=== PATIENT | male | born 1950 | race Caucasian/White ===

== ENCOUNTER 2016-10-18 07:02 | Inpatient (IN) ==
--- NOTE | 2016-10-17 21:11 | Discharge Summary ---
<Radha Romano E - Last Filed: 10/17/16 21:08> Date of Encounter: 10/17/16 - Discharge Diagnosis (1) Arthritis of left knee Priority: Primary Status: Chronic (2) Atrial fibrillation Priority: Secondary Status: Chronic Qualifiers: Atrial fibrillation type: unspecified Qualified Code(s): I48.91 - Unspecified atrial fibrillation (3) Cardiac defibrillator in place Priority: Secondary Status: Chronic (4) Anticoagulant long-term use Priority: Secondary Status: Chronic Comments: Eliquis (5) Oxygen dependent Priority: Secondary Status: Chronic Comments: 3.5 LPM via NC (6) COPD (chronic obstructive pulmonary disease) Priority: Secondary Status: Chronic Qualifiers: COPD type: unspecified COPD Qualified Code(s): J44.9 - Chronic obstructive pulmonary disease, unspecified (7) JOSE on CPAP Priority: Secondary Status: Chronic (8) Insulin dependent diabetes mellitus Priority: Secondary Status: Chronic (9) Gout Priority: Secondary Status: Chronic Qualifiers: Gout site: unspecified site Gout etiology: unspecified cause Chronicity: unspecified Qualified Code(s): M10.9 - Gout, unspecified - Discharge Medications Home Medications: Allopurinol [Zyloprim] 300 mg PO DAILY 03/13/15 [History] Insulin ASPART [NovoLOG] 8 units SQ TID 03/13/15 [History] Insulin Glargine,Hum.rec.anlog [Lantus Solostar] 40 units SQ HS 03/13/15 [ History] Ipratropium/Albuterol Neb [Duoneb] 3 ml IH Q6HR 03/13/15 [History] TraMADol [Ultram] 50 mg PO QID PRN 03/13/15 [History] Albuterol Sulfate [Proair Hfa] 1 puff IH Q4-6H PRN 11/26/15 [History] Apixaban [Eliquis] 2.5 mg PO BID 11/26/15 [History] Fluticasone/Salmeterol [Advair 500-50 Diskus] 1 each IH BID 03/30/16 [History] Multivitamin/Iron/Folic Acid [Cerovite Advanced Form Tab] 1 each PO DAILY [History] Atorvastatin [Lipitor] 40 mg PO HS 09/02/16 [History] Carvedilol [Coreg] 25 mg PO BID 09/02/16 [History] Furosemide [Lasix] 40 mg PO DAILY 09/02/16 [History] Oxygen 3.5 l NS AD 09/02/16 [History] Trazodone HCl 150 mg PO HS 09/02/16 [History] OxyCODONE Immed Rel [Roxicodone 5 MG] 5 - 10 mg PO Q6HR PRN #40 tablet 10/17/16 [Rx] Isosorbide DInitrate [Isosorbide Dinitrate] 10 mg PO BID 10/18/16 [History] LORazepam [Ativan] 1 mg PO HS 10/18/16 [History] Omeprazole [PriLOSEC] 20 mg PO DAILY 10/18/16 [History] hydrALAZINE [HydrALAZINE] 10 mg PO Q8H 10/18/16 [History] rOPINIRole [Requip] 3 mg PO HS 10/18/16 [History] Allergies/Adverse Reactions: Allergies Penicillins [PCN] Allergy (Verified 09/27/16 14:07) Rash aspirin [ASA] Adverse Reaction (Verified 09/27/16 14:07) Nausea haloperidol [From Haldol] Adverse Reaction (Verified 09/27/16 14:07) Confusion Primary care physician: Jack Ordaz CNP - Patient Status Disposition: Transfer Inpatient Rehab Fac Condition: Good - Discharge Instructions Follow Up With: Jack Ordaz CNP [Primary Care Provider] - - Hospital Course Hospital course: Mr. Mcghee is a 66 year old male - Time Spent with Patient Total time spent providing and/or coordinating discharge services: - VTE Reasons for not Prescribing Prophylaxis: Not indicated-Anticoagulated or INR therapeutic Documentation of Mechanical Device: Venous foot pump, device Contraindication No Overlap Therapy: Admin of oral Factor Xa Inhibitor <Rony Ibarra - Last Filed: 10/21/16 07:49> Date of Encounter: 10/21/16 Time of Encounter: 07:48 - Discharge Diagnosis (1) Status post total left knee replacement Priority: Primary Status: Acute (2) Morbid obesity with BMI of 40.0-44.9, adult Priority: Secondary Status: Chronic (3) Arthritis of left knee Priority: Primary Status: Chronic (4) Atrial fibrillation Priority: Secondary Status: Chronic Qualifiers: Atrial fibrillation type: unspecified Qualified Code(s): I48.91 - Unspecified atrial fibrillation (5) Cardiac defibrillator in place Priority: Secondary Status: Chronic (6) Anticoagulant long-term use Priority: Secondary Status: Chronic (7) Oxygen dependent Priority: Secondary Status: Chronic (8) COPD (chronic obstructive pulmonary disease) Priority: Secondary Status: Chronic Qualifiers: COPD type: unspecified COPD Qualified Code(s): J44.9 - Chronic obstructive pulmonary disease, unspecified (9) JOSE on CPAP Priority: Secondary Status: Chronic (10) Insulin dependent diabetes mellitus Priority: Secondary Status: Chronic (11) Gout Priority: Secondary Status: Chronic Qualifiers: Gout site: unspecified site Gout etiology: unspecified cause Chronicity: unspecified Qualified Code(s): M10.9 - Gout, unspecified Primary care physician: Jack Ordaz CNP - Patient Status Functional capacity at discharge: uses cane/walker Overall status at discharge: patient is progressing back to baseline - Hospital Course Hospital course: Mr. Mcghee is a 66 year old male Status post left total knee replacement. The patient had an uneventful postoperative course. They received antibiotics and physical therapy and were discharged in stable condition. There will follow-up in the office in 2 weeks. Patient will go to an extended care facility. On DVT prophylaxis. - Time Spent with Patient Total time spent providing and/or coordinating discharge services:
[2016-10-18] MEDS ORDERED: Lidocaine -MPF 1% 2 ML VIAL ID ONE (07:38)
[2016-10-18] MEDS ORDERED: Albuterol 2.5 MG/3 ML NEBULIZER IH ONE (07:38)
[2016-10-18] MEDS ORDERED: CeFAZolin Pre 3,000 MG/100 ML 3,000 MG/100 ML BAG IVPB ONE (07:38)
[2016-10-18] MEDS ORDERED: Ringers Solution, Lactated 1,000 ML IVC SCH ×2 (07:45→11:41)
--- NOTE | 2016-10-18 07:55 | History & Physical Report ---
Date of Encounter: 10/18/16 Time of Encounter: 07:55 24 Hour HP Update - Instructions Instructions: If the History and Physical is less than 30 days old and was completed prior to A.M. admission and or procedure and has NOT been updated on calendar day of procedure please complete this update prior to performing procedure. - Update Patient reports changes in Medical Condition: No Changes in examination, assessment, or condition: No Changes in Medication: No Preop tests/diagnostics Reviewed: Yes Surgery Remains Indicated: Yes Consent for Planned Operative Procedure(s) Verified: Yes - Pre-Operative Checklist Preoperative Checklist Indicated: No Prophylactic Antibiotic Ordered: Yes Is VTE Prophylaxis Indicated?: Yes
[2016-10-18] MEDS ORDERED: Famotidine 20 MG/2 ML VIAL IVP ONE (08:07)
[2016-10-18] MEDS ORDERED: Gabapentin 300 MG CAPSULE PO ONE (08:08)
[2016-10-18] MEDS ORDERED: *HR* FentaNYL (PF) 100 MCG/2 ML VIAL ONE (08:14)
[2016-10-18] MEDS ORDERED: Ketamine *HR* 500 MG/10 ML MDV ONE (08:14)
[2016-10-18] MEDS ORDERED: *HR* Midazolam HCl 2 MG/2 ML VIAL ONE (08:15)
[2016-10-18] MEDS ORDERED: *HR* Propofol 200 MG/20 ML VIAL IVP ONE (08:15)
[2016-10-18] MEDS ORDERED: Lidocaine -MPF 2% 2 ML VIAL ONE (08:17)
[2016-10-18] MEDS ORDERED: Bupivacaine/Clonidine Syringe 1 EACH SYRINGE ONE (08:34)
[2016-10-18] MEDS ORDERED: ROPIVACAINE HCL/PF 0.5% 30 ML VIAL ONE (08:35)
--- NOTE | 2016-10-18 08:41 | Anesthesia Evaluation PreOp ---
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 History: Denies Any Significant HX Other Medical History: Diabetes Type II, GERD, Other ([place]) Anesthesia History: No Prior Anesthetic Complications Alcohol Use: rarely Drug use: none Medications and Allergies Allopurinol [Zyloprim] 300 mg PO DAILY 03/13/15 [History] Insulin ASPART [NovoLOG] 8 units SQ TID 03/13/15 [History] Insulin Glargine,Hum.rec.anlog [Lantus Solostar] 40 units SQ HS 03/13/15 [ History] Ipratropium/Albuterol Neb [Duoneb] 3 ml IH Q6HR 03/13/15 [History] TraMADol [Ultram] 50 mg PO QID PRN 03/13/15 [History] Albuterol Sulfate [Proair Hfa] 1 puff IH Q4-6H PRN 11/26/15 [History] Apixaban [Eliquis] 2.5 mg PO BID 11/26/15 [History] Fluticasone/Salmeterol [Advair 500-50 Diskus] 1 each IH BID 03/30/16 [History] Multivitamin/Iron/Folic Acid [Cerovite Advanced Form Tab] 1 each PO DAILY [History] Atorvastatin [Lipitor] 40 mg PO HS 09/02/16 [History] Carvedilol [Coreg] 25 mg PO BID 09/02/16 [History] Furosemide [Lasix] 40 mg PO DAILY 09/02/16 [History] Oxygen 3.5 l NS AD 09/02/16 [History] Trazodone HCl 150 mg PO HS 09/02/16 [History] OxyCODONE Immed Rel [Roxicodone 5 MG] 5 - 10 mg PO Q6HR PRN #40 tablet 10/17/16 [Rx] Isosorbide DInitrate [Isosorbide Dinitrate] 10 mg PO BID 10/18/16 [History] LORazepam [Ativan] 1 mg PO HS 10/18/16 [History] Omeprazole [PriLOSEC] 20 mg PO DAILY 10/18/16 [History] hydrALAZINE [HydrALAZINE] 10 mg PO Q8H 10/18/16 [History] rOPINIRole [Requip] 3 mg PO HS 10/18/16 [History] Allergies Penicillins [PCN] Allergy (Verified 09/27/16 14:07) Rash aspirin [ASA] Adverse Reaction (Verified 09/27/16 14:07) Nausea haloperidol [From Haldol] Adverse Reaction (Verified 09/27/16 14:07) Confusion - Meds/Allergy Pre-op Review Medications Reviewed: Yes Allergies Reviewed: Yes Beta Blockers on Current Med List: Yes (Coreg last night 1000) Anesthesia Results - Labs Laboratory Tests 09/27/16 09/27/16 13:20 13:20 Hgb 13.5 Hct 40.4 Plt Count 129 L Sodium 142 Potassium 3.9 BUN 18 Creatinine 1.06 - Imaging EKG: report reviewed (AFib) Additional studies: LVEF 20% Anesthesia Exam O2 Sat Height 1.7 m Height 1.7 m Height 1.7 m Weight 122.924 kg Weight 122.924 kg Weight 122.924 kg O2 Sat by Pulse Oximetry 92 O2 Sat by Pulse Oximetry 92 Vital Signs Temp Pulse Resp BP Pulse Ox 98.4 F 85 18 143/83 92 10/18/16 07:21 10/18/16 07:21 10/18/16 07:21 10/18/16 07:21 10/18/16 07:21 Height: 5'7 Weight: 271 lbs NPO (# of Hours): MN Pain Scale: 0 - HEENT Pupil (Motor): Pupils equal, EOMI Mallampati: III Denture Type: Upper: Complete Oral Opening: Less than or equal to 3 - 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 LOC: Oriented 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
[2016-10-18] MEDS ORDERED: Heparin 1,000 UNITS/500 mL NS 500 ML ONE (09:04)
--- NOTE | 2016-10-18 09:12 | Anesthesia Procedures ---
Date of Encounter: 10/18/16 Time of Encounter: 09:10 Procedures: Anesthesia - Nerve Block Procedure Date: 10/18/16 Time: 09:10 Allergies/Adv Reactions: Allergies Penicillins [PCN] Allergy (Verified 09/27/16 14:07) Rash aspirin [ASA] Adverse Reaction (Verified 09/27/16 14:07) Nausea haloperidol [From Haldol] Adverse Reaction (Verified 09/27/16 14:07) Confusion Pre-op Diagnosis: left knee oa Surgical Procedure: left total knee Checklist: Correct Patient Identifier, Correct procedure, History checked Correct side: Left Blood Thinner: Yes (off x 3 days) Monitor Applied: EKG, BP, Pulse Oximetry Supplemental Oxygen via Nasal Cannula (L/min): 2 Sedation: Versed (mg): 2 Sedation: Fentanyl (mcg): 100 Indication: Post Op Analgesia Pre-op Neuro Deficits: No Block Type: Femoral Catheter placed: No Sterile Technique: Yes Ultrasound used: Yes Anatomy identified: Yes Visual spread of Local: Yes Neuro Stimulation: Yes Nerve Stimulator Range: 0.2 - 0.4 mA Blood on Needle Aspiration: No Smooth Injection of Local: Yes Pain with Injection of Local: No Prep: Chlorhexadine Needle: 22 x 50 mm Stimuplex Local: Ropivacaine (0.5%) Volume (cc): 30 Number of Attempts: 1 Complications: None/effective block
[2016-10-18] MEDS ORDERED: *HR* Succinylcholine 200 MG/10 ML VIAL IVP ONE (09:21)
[2016-10-18] MEDS ORDERED: *HR* Etomidate 40 MG/20 ML VIAL IVP ONE (09:21)
[2016-10-18] MEDS ORDERED: Lidocaine -MPF 4% 5 ML AMPUL ONE (09:22)
[2016-10-18] MEDS ORDERED: Ondansetron 4 MG/2 ML VIAL ONE (09:41)
[2016-10-18] MEDS ORDERED: Dexamethasone 4 MG/ML VIAL ONE (09:41)
[2016-10-18] MEDS ORDERED: *HR* HYDROmorphone 2 MG/ML SYRINGE ONE (09:43)
[2016-10-18] MEDS ORDERED: Ondansetron 4 MG/2 ML VIAL IVP PRN ×2 (09:50→11:41)
[2016-10-18] MEDS ORDERED: *HR* HYDROmorphone (PF) 1 MG/ML SYRINGE IVP PRN (09:50)
--- NOTE | 2016-10-18 09:50 | Anesthesia Procedures ---
Date of Encounter: 10/18/16 Time of Encounter: 09:08 Procedures: Anesthesia - Arterial Line Consent obtained: written consent Time out performed: Yes Supplemental Oxygen via Nasal Cannula (L/min): 2 Local Anesthetic: Lidocaine 1% Amount of Anesthetic used (mls): 0.3 Size (Gauge): 20 Length (inches): 1 3/4 Technique Used: sterile prep, guide wire technique, direct puncture technique Post-Procedure: line taped into place, dry sterile dressing placed Patient tolerated procedure: well, no complications Complications: none Site: Radial L Vitals: VSS
--- NOTE | 2016-10-18 10:04 | Orthopedic Operative Note ---
Date of procedure: 10/18/16 Pre-op diagnosis: Left knee arthritis Post-op diagnosis: same Procedure: Procedure: Left Total knee replacement Estimated blood loss: 200 cc Hardware: Metal and polyethylene replacement. Arthrex Femur: 7 Tibia: 7 PS insert: 14 Patella: 40 Exam Under anesthesia: External rotation deformity loss of full extension 10 degrees, full flexion Procedural Notes: Patient noted to have grade 4 arthritic changes medial compartment patellofemoral joint. Operative procedure: The patient was brought to the operating room and placed on the operating room table. After general anesthesia was administered the operative knee was examined. Findings were noted in the exam under anesthesia. The operative extremity was prepped and draped in sterile surgical fashion. The patient received IV antibiotics prior to skin incision. A standard midline incision was made centered over the patella. The incision was made through the skin and subcutaneous tissue. A medial parapatellar tendon approach was performed. Care was taken to preserve tissue along the medial aspect of the patella. And to protect the patella tendon. The deep MCL was released off the medial tibia. The infra patella fat pad was excised. Knee was brought into flexion. Patient noted to have grade 4 arthritic changes medial compartment patellofemoral joint. The entry hole was made for the intramedullary femoral guide. The guide was seated in 6 degrees of valgus. Anterior cut was made followed by the distal cut. The ACL the PCL the medial and the lateral menisci were excised. The tibia was subluxed forward. The entry hole was made for the intramedullary tibial guide. Guide was seated to resect 2 mm off the more abnormal side. The knee was brought into flexion the distal femur was sized to a 7. The femoral guide was seated, the anterior cut was made followed by the posterior condylar cut, followed by the chamfer cuts. The finishing guide was seated the box cut was made and the lug holes were drilled. The tibia was sized to a 7, the tibial tray was seated and prepared with the large drill followed by the fin cutter. Trial reduction revealed full extension no varus valgus instability with the appropriate 14 PS Jo. The patella was everted and cut was made at the level of the insertion of the quadriceps and patella tendon. The patella was sized to a 40 the guide was seated and the lug holes are drilled. Trial reduction revealed excellent patella tracking. All trial components were removed all bony surfaces were irrigated. The tibia was cemented first followed by the femur. The 14 PS Jo was seated and the knee was brought into full extension. The patella was cemented and held in place with the patellar holding clamp. After the cement had hardened, the knee sat for 2 minutes with a Betadine saline solution. The knee was then irrigated out with 2 L of pulse irrigation. The PA closed the knee. The extensor mechanism was closed with #2 FiberWire suture and #2 PDS suture. The subcutaneous tissue was then irrigated and closed deep with #1 PDS suture superficially with 0 PDS suture and skin was closed with skin jazz. The patient was then placed in a sterile dressing and a postoperative brace extubated and transferred to recovery room in stable condition. Anesthesia: GETA Surgeon: Rony Ibarra Condition: stable Disposition: PACU
[2016-10-18 11:20] LABS: Hematocrit 38.1 % (37.5-50.1); Hemoglobin 12.6 g/dL (12.9-16.9)
--- NOTE | 2016-10-18 11:33 | Anesthesia Evaluation Post Op ---
Date of Encounter: 10/18/16 Time of Encounter: 11:30 - Vital Signs Vital Signs: Vital Signs/O2 Sat/Glucose, Most Current Temp Pulse Resp BP Pulse Ox 10/18/16 11:15 69 18 121/75 94 10/18/16 11:05 97.3 F L 76 18 120/68 92 10/18/16 10:55 72 16 111/66 92 10/18/16 10:45 74 18 110/74 94 10/18/16 10:35 98.0 F 73 16 98/72 92 10/18/16 09:03 76 16 134/86 92 10/18/16 08:51 94 16 119/66 93 10/18/16 07:50 18 92 - Lungs Lungs: Clear Ascult./Percussion - Airway Airway: Non-obstructed - Cardiovascular Regular Rate - Mental Status Mental Status: Alert & Oriented, Answers Appropriately - Pain Pain Scale: 1 - Nausea Vomiting Nausea Vomiting: Not Present - Hydration Hydration: Ice chips - Discharge PostOp Status: Transfer Patient to floor
[2016-10-18] MEDS ORDERED: Naloxone 0.4 MG/ML INJ IVP PRN (11:41)
[2016-10-18] MEDS ORDERED: Temazepam 15 MG CAPSULE PO PRN (11:41)
[2016-10-18] MEDS ORDERED: NON-FORMULARY MEDICATION 1 EACH EACH (Oxygen [Oxygen] 3.5 L) NS SCH (11:41)
[2016-10-18] MEDS ORDERED: MOM Conc 10 ML UD.LIQ PO PRN (11:41)
[2016-10-18] MEDS ORDERED: Sennosides 8.6 MG TABLET PO PRN (11:41)
[2016-10-18] MEDS ORDERED: D5% in Water 1,000 ML IVC PRN (11:41)
[2016-10-18] MEDS ORDERED: INSULIN ASPART 8 UNIT SQ SCH (11:41)
[2016-10-18] MEDS ORDERED: *HR* OxyCODONE Immed Rel 5 MG TABLET PO PRN (11:41)
[2016-10-18] MEDS ORDERED: Dextrose Gel 15 GM PO PRN ×2 (11:41)
[2016-10-18] MEDS ORDERED: *HR* Dextrose 50 % in Water (Syg) 50 ML SYRINGE IVP PRN (11:41)
[2016-10-18] MEDS: hydrALAZINE 10 MG TABLET PO SCH ×2 (12:33→22:01)
[2016-10-18] MEDS: Insulin LISPRO 300 UNITS/3 ML VIAL SQ SCH ×5 (12:51→22:01)
[2016-10-18] MEDS: Furosemide 40 MG TABLET PO SCH (13:45)
[2016-10-18] MEDS: APIXABAN 2.5 MG TABLET PO SCH ×2 (13:45→22:00)
[2016-10-18] MEDS: *HR* OxyCODONE Immed Rel 5 MG TABLET PO PRN ×2 (13:50→20:06)
[2016-10-18] MEDS: Ipratropium/Albuterol Neb 3 ML IH SCH ×2 (15:50→22:41)
[2016-10-18] MEDS: Clindamycin 900 MG/50 ML 900 MG/50 ML IV.SOLN IVPB SCH (16:51)
[2016-10-18] MEDS: traZODone 50 MG TABLET PO SCH (22:00)
[2016-10-18] MEDS: *HR* LORazepam 1 MG TABLET PO SCH (22:01)
[2016-10-18] MEDS: Insulin DETEMIR 100 UNIT/ML X5UNITS SQ SCH (22:01)
[2016-10-18] MEDS: Budesonide/Formoterol 160/4.5 MDI IH SCH (22:41)
[2016-10-19] MEDS: Clindamycin 900 MG/50 ML 900 MG/50 ML IV.SOLN IVPB SCH (00:09)
[2016-10-19] MEDS: Ipratropium/Albuterol Neb 3 ML IH SCH ×4 (04:21→21:16)
[2016-10-19] MEDS: hydrALAZINE 10 MG TABLET PO SCH ×3 (05:03→20:57)
[2016-10-19] MEDS: *HR* OxyCODONE Immed Rel 5 MG TABLET PO PRN ×4 (05:11→20:54)
--- NOTE | 2016-10-19 06:50 | Orthopedics Progress Note ---
Date of Encounter: 10/19/16 Time of Encounter: 06:50 - Assessment and Plan (1) Status post total left knee replacement Current Visit: Yes Status: Acute (2) Morbid obesity with BMI of 40.0-44.9, adult Current Visit: Yes Status: Chronic (3) Arthritis of left knee Current Visit: Yes Status: Acute (4) Atrial fibrillation Current Visit: Yes Status: Chronic Qualifiers: Atrial fibrillation type: unspecified Qualified Code(s): I48.91 - Unspecified atrial fibrillation (5) Cardiac defibrillator in place Current Visit: Yes Status: Chronic (6) Anticoagulant long-term use Current Visit: Yes Status: Chronic (7) Oxygen dependent Current Visit: Yes Status: Chronic (8) COPD (chronic obstructive pulmonary disease) Current Visit: Yes Status: Chronic Qualifiers: COPD type: unspecified COPD Qualified Code(s): J44.9 - Chronic obstructive pulmonary disease, unspecified (9) JOSE on CPAP Current Visit: Yes Status: Chronic (10) Insulin dependent diabetes mellitus Current Visit: Yes Status: Chronic (11) Gout Current Visit: Yes Status: Chronic Qualifiers: Gout site: unspecified site Gout etiology: unspecified cause Chronicity: unspecified Qualified Code(s): M10.9 - Gout, unspecified Subjective Interval history: Patient was seen this morning doing well without complaints. Afebrile vital signs stable. Operative extremity: Neurovascularly intact Dressing bloody drainage will change today. Calves nontender Assessment and plan: Continue with postoperative care hematocrit 38 Objective Vital signs: Vital Signs Temp Pulse Resp BP Pulse Ox 10/19/16 04:21 16 97 10/19/16 03:41 98.3 F 80 17 117/71 99 10/18/16 23:40 98.7 F 87 17 107/71 93 10/18/16 22:42 16 93 10/18/16 19:22 97.6 F 92 17 151/94 98 10/18/16 15:50 16 93 10/18/16 14:49 97.8 F 81 17 124/69 94 10/18/16 13:46 97.8 F 89 19 132/69 97 10/18/16 12:41 97.6 F 83 17 118/67 94 10/18/16 12:08 97.6 F 84 18 119/68 96 10/18/16 11:40 97.6 F 89 18 119/68 92 10/18/16 11:35 68 18 122/78 93 10/18/16 11:25 72 18 125/79 92 10/18/16 11:15 69 18 121/75 94 10/18/16 11:05 97.3 F L 76 18 120/68 92 10/18/16 10:55 72 16 111/66 92 10/18/16 10:45 74 18 110/74 94 10/18/16 10:35 98.0 F 73 16 98/72 92 10/18/16 09:03 76 16 134/86 92 10/18/16 08:51 94 16 119/66 93 10/18/16 07:50 18 92 10/18/16 07:21 98.4 F 85 18 143/83 92 Intake and Output 10/18/16 10/18/16 10/19/16 15:59 23:59 07:59 Intake Total 100 / 100 50 / 50 1250 / 1250 Output Total 200 / 200 650 / 650 600 / 600 Balance -100 / -100 -600 / -600 650 / 650 Intake: IV Fluids 100 / 100 50 / 50 Ancef Premix 3,000 MG/100 100 / 100 ML 3,000 mg In 100 ml @ 200 mls/hr IVPB PREOP ONE Rx#:[id number] Cleocin Premix 900 MG/50 50 / 50 ML 900 mg In 50 ml @ 50 mls/hr IVPB Q8HR EDGAR Rx#: [id number] Oral 1250 / 1250 Output: Urine 650 / 650 600 / 600 Estimated Blood Loss 200 / 200 Other: Blood Glucose* 176 204 - Labs CBC & BMP: 10/18/16 11:08 Labs: Abnormal lab results Hgb 12.6 g/dL (12.9-16.9) L 10/18/16 11:08 POC Glucose 204 (58-89) H 10/18/16 21:22 - VTE Reasons for not Prescribing Prophylaxis: Not indicated-Anticoagulated or INR therapeutic Documentation of Mechanical Device: Venous foot pump, device Contraindication No Overlap Therapy: Admin of oral Factor Xa Inhibitor Consult Discharge Plan - Plan Referrals: Jack Ordaz, CAN INSPECTOR [Primary Care Provider] -
[2016-10-19] MEDS: Multivit/Ca/Min/Fe/FA 1 TAB TABLET PO SCH (07:33)
[2016-10-19] MEDS: APIXABAN 2.5 MG TABLET PO SCH ×2 (07:33→20:55)
[2016-10-19] MEDS: Furosemide 40 MG TABLET PO SCH (07:33)
[2016-10-19] MEDS: Insulin LISPRO 300 UNITS/3 ML VIAL SQ SCH ×7 (07:33→21:00)
[2016-10-19 07:34] LABS: Hematocrit 36.1 % (37.5-50.1); Hemoglobin 11.5 g/dL (12.9-16.9)
[2016-10-19 07:56] LABS: BUN/Creatinine Ratio 30 (6-26); Blood Urea Nitrogen 29 mg/dL (8-26); Calcium 8.6 mg/dL (8.6-10.8); Carbon Dioxide 27 mEq/L (19-29); Chloride 107 mEq/L (98-109); Glucose 149 mg/dL (70-99); Osmolality,Calculated 293 (280-300); Potassium 5.7 mEq/L (3.5-4.5); Sodium 137 mEq/L (136-145); eGFR For African Americans > 60 (> 60); eGFR For Non-African Americans > 60 (> 60)
--- NOTE | 2016-10-19 08:47 | Physician Discharge Referral ---
Home Health/Hosp Referral Info Attending Provider: Dr. Rony Ibarra - Diagnosis (1) Status post total left knee replacement Priority: Primary Status: Acute (2) Arthritis of left knee Priority: Secondary Status: Chronic (3) Atrial fibrillation Priority: Secondary Status: Chronic (4) Cardiac defibrillator in place Priority: Secondary Status: Chronic (5) Anticoagulant long-term use Priority: Secondary Status: Chronic (6) Oxygen dependent Priority: Secondary Status: Chronic (7) COPD (chronic obstructive pulmonary disease) Priority: Secondary Status: Chronic (8) JOSE on CPAP Priority: Secondary Status: Chronic (9) Insulin dependent diabetes mellitus Priority: Secondary Status: Chronic (10) Gout Priority: Secondary Status: Chronic (11) Morbid obesity with BMI of 40.0-44.9, adult Priority: Secondary Status: Chronic - Respiratory Orders Oxygen / L per min (3 LPM) Smoking Cessation: Smoking cessation has been advised. For more information, call the [place] Tobacco Quit Line at 3-231-BZLC-NOW. - Diet/Nutrition Diet/Nutrition Orders: Regular - Activity Activity Orders: Ambulate - Services Needed Following services are medically necessary services: Physical Therapy, Occupational Therapy - Transfer Medications Home Medications: Allopurinol [Zyloprim] 300 mg PO DAILY 03/13/15 [History] Insulin ASPART [NovoLOG] 8 units SQ TID 03/13/15 [History] Insulin Glargine,Hum.rec.anlog [Lantus Solostar] 40 units SQ HS 03/13/15 [ History] Ipratropium/Albuterol Neb [Duoneb] 3 ml IH Q6HR 03/13/15 [History] TraMADol [Ultram] 50 mg PO QID PRN 03/13/15 [History] Albuterol Sulfate [Proair Hfa] 1 puff IH Q4-6H PRN 11/26/15 [History] Apixaban [Eliquis] 2.5 mg PO BID 11/26/15 [History] Fluticasone/Salmeterol [Advair 500-50 Diskus] 1 each IH BID 03/30/16 [History] Multivitamin/Iron/Folic Acid [Cerovite Advanced Form Tab] 1 each PO DAILY [History] Atorvastatin [Lipitor] 40 mg PO HS 09/02/16 [History] Carvedilol [Coreg] 25 mg PO BID 09/02/16 [History] Furosemide [Lasix] 40 mg PO DAILY 09/02/16 [History] Oxygen 3.5 l NS AD 09/02/16 [History] Trazodone HCl 150 mg PO HS 09/02/16 [History] OxyCODONE Immed Rel [Roxicodone 5 MG] 5 - 10 mg PO Q6HR PRN #40 tablet 10/17/16 [Rx] Isosorbide DInitrate [Isosorbide Dinitrate] 10 mg PO BID 10/18/16 [History] LORazepam [Ativan] 1 mg PO HS 10/18/16 [History] Omeprazole [PriLOSEC] 20 mg PO DAILY 10/18/16 [History] hydrALAZINE [HydrALAZINE] 10 mg PO Q8H 10/18/16 [History] rOPINIRole [Requip] 3 mg PO HS 10/18/16 [History] Allergies/Adverse Reactions: Allergies Penicillins [PCN] Allergy (Verified 09/27/16 14:07) Rash aspirin [ASA] Adverse Reaction (Verified 09/27/16 14:07) Nausea haloperidol [From Haldol] Adverse Reaction (Verified 09/27/16 14:07) Confusion Certification: Further, I certify that my clinical findings support that this patient is homebound (i.e. absences from home require considerable and taxing effort and are for medical reasons or [employer] services or infrequently or short duration when for other reasons) because: Homebound Reason: Post-surgery restriction and or conditions limit ability to leave home Attestation: My signature below is to certify that this patient is under my care and that I, or nurse practitioner, or a physician assistant finance manager working with me, has a face-to- face encounter with this patient.
[2016-10-19] MEDS: Budesonide/Formoterol 160/4.5 MDI IH SCH ×2 (10:23→21:16)
[2016-10-19] MEDS: *HR* HYDROmorphone (PF) 1 MG/ML SYRINGE IVP PRN ×3 (11:28→22:33)
--- NOTE | 2016-10-19 16:14 | Physician Discharge Referral ---
ExtendedCare Referral Info Transfer To: F Provider in Charge: Dr. Rony Ibarra Institutional Level of Care: Skilled - Diagnosis (1) Status post total knee replacement Priority: Primary Status: Acute (2) Arthritis of left knee Priority: Secondary Status: Chronic (3) Atrial fibrillation Priority: Secondary Status: Chronic (4) Cardiac defibrillator in place Priority: Secondary Status: Chronic (5) Anticoagulant long-term use Priority: Secondary Status: Chronic (6) Oxygen dependent Priority: Secondary Status: Chronic (7) COPD (chronic obstructive pulmonary disease) Priority: Secondary Status: Chronic (8) JOSE on CPAP Priority: Secondary Status: Chronic (9) Insulin dependent diabetes mellitus Priority: Secondary Status: Chronic (10) Gout Priority: Secondary Status: Chronic Expected Duration of Placement: 30 days Prognosis: Good Aware of Diagnosis: Patient Aware of Prognosis: Patient - Transfer Medications Home Medications: Allopurinol [Zyloprim] 300 mg PO DAILY 03/13/15 [History] Insulin ASPART [NovoLOG] 8 units SQ TID 03/13/15 [History] Insulin Glargine,Hum.rec.anlog [Lantus Solostar] 40 units SQ HS 03/13/15 [ History] Ipratropium/Albuterol Neb [Duoneb] 3 ml IH Q6HR 03/13/15 [History] TraMADol [Ultram] 50 mg PO QID PRN 03/13/15 [History] Albuterol Sulfate [Proair Hfa] 1 puff IH Q4-6H PRN 11/26/15 [History] Apixaban [Eliquis] 2.5 mg PO BID 11/26/15 [History] Fluticasone/Salmeterol [Advair 500-50 Diskus] 1 each IH BID 03/30/16 [History] Multivitamin/Iron/Folic Acid [Cerovite Advanced Form Tab] 1 each PO DAILY [History] Atorvastatin [Lipitor] 40 mg PO HS 09/02/16 [History] Carvedilol [Coreg] 25 mg PO BID 09/02/16 [History] Furosemide [Lasix] 40 mg PO DAILY 09/02/16 [History] Oxygen 3.5 l NS AD 09/02/16 [History] Trazodone HCl 150 mg PO HS 09/02/16 [History] OxyCODONE Immed Rel [Roxicodone 5 MG] 5 - 10 mg PO Q6HR PRN #40 tablet 10/17/16 [Rx] Isosorbide DInitrate [Isosorbide Dinitrate] 10 mg PO BID 10/18/16 [History] LORazepam [Ativan] 1 mg PO HS 10/18/16 [History] Omeprazole [PriLOSEC] 20 mg PO DAILY 10/18/16 [History] hydrALAZINE [HydrALAZINE] 10 mg PO Q8H 10/18/16 [History] rOPINIRole [Requip] 3 mg PO HS 10/18/16 [History] Allergies/Adverse Reactions: Allergies Penicillins [PCN] Allergy (Verified 09/27/16 14:07) Rash aspirin [ASA] Adverse Reaction (Verified 09/27/16 14:07) Nausea haloperidol [From Haldol] Adverse Reaction (Verified 09/27/16 14:07) Confusion - Respiratory Orders Smoking Cessation: Smoking cessation has been advised. For more information, call the [place] Tobacco Quit Line at 5-031-TIVW-NOW. - Ancillary Orders May use pressure relief devices daily prn, May go on TOMAS w/family/respon libertarian w /meds at nurse discretion PRN, May consult with Dentist, Kelp Gatherer, Central Office Frame Wirer PRN - Mobility Orders Ambulate (with walker) - Rehabiliation Orders Rehab Potential: Good Rehab Orders: Evaluation for Physical Therapy, Evaluation for Occupational Therapy Other: Total Knee replacement Precautions x 6 weeks Apply cold therapy wrap 3-6x/day for 20 minutes at a time. Encourage ambulation throughout the day and incentive spirometer 10x/hour. Elevate affected extremity above heart as tolerated. Brace: Wear knee immobilizer at night x 2 weeks. - Treatments Skin tear care topically daily PRN per policy List/Other: Opsite placed. Keep dressing intact until first follow up appointment. If > 50% saturated,notify offfice, remove dressing and place appropriate dressing back in place. Dressing is water resistant, not water-proof. OK to shower, but do not get dressing wet. - Diet Orders Regular CERTIFICATION: I certify that the transfer of the above named patient to an Extended Care Facility is necessary for the continuing treatment of the diagnosis listed. The above information is true and accurate reflection of patient's current condition. Confidential - Redisclosure prohibited without a patient's written consent.
[2016-10-19] MEDS: *HR* LORazepam 1 MG TABLET PO SCH (20:55)
[2016-10-19] MEDS: traZODone 50 MG TABLET PO SCH (20:55)
[2016-10-19] MEDS: Insulin DETEMIR 100 UNIT/ML X5UNITS SQ SCH (21:04)
[2016-10-20] MEDS: *HR* HYDROmorphone (PF) 1 MG/ML SYRINGE IVP PRN (02:31)
[2016-10-20] MEDS: Ipratropium/Albuterol Neb 3 ML IH SCH ×4 (04:20→22:43)
[2016-10-20] MEDS: hydrALAZINE 10 MG TABLET PO SCH ×3 (04:40→21:15)
[2016-10-20] MEDS: *HR* OxyCODONE Immed Rel 5 MG TABLET PO PRN ×4 (05:28→21:14)
[2016-10-20 07:15] LABS: BUN/Creatinine Ratio 34 (6-26); Blood Urea Nitrogen 35 mg/dL (8-26); Calcium 9.1 mg/dL (8.6-10.8); Carbon Dioxide 30 mEq/L (19-29); Chloride 103 mEq/L (98-109); Glucose 70 mg/dL (70-99); Osmolality,Calculated 292 (280-300); Sodium 138 mEq/L (136-145); eGFR For African Americans > 60 (> 60); eGFR For Non-African Americans > 60 (> 60)
[2016-10-20 07:18] LABS: Potassium 4.6 mEq/L (3.5-4.5)
[2016-10-20] MEDS: Insulin LISPRO 300 UNITS/3 ML VIAL SQ SCH ×7 (07:38→21:15)
[2016-10-20] MEDS: APIXABAN 2.5 MG TABLET PO SCH ×2 (07:52→21:15)
[2016-10-20] MEDS: Multivit/Ca/Min/Fe/FA 1 TAB TABLET PO SCH (07:52)
[2016-10-20] MEDS: Furosemide 40 MG TABLET PO SCH (07:52)
--- NOTE | 2016-10-20 08:02 | Orthopedics Progress Note ---
Date of Encounter: 10/20/16 Time of Encounter: 08:01 - Assessment and Plan (1) Status post total left knee replacement Current Visit: Yes Status: Acute (2) Morbid obesity with BMI of 40.0-44.9, adult Current Visit: Yes Status: Chronic (3) Arthritis of left knee Current Visit: Yes Status: Chronic (4) Atrial fibrillation Current Visit: Yes Status: Chronic Qualifiers: Atrial fibrillation type: unspecified Qualified Code(s): I48.91 - Unspecified atrial fibrillation (5) Cardiac defibrillator in place Current Visit: Yes Status: Chronic (6) Anticoagulant long-term use Current Visit: Yes Status: Chronic (7) Oxygen dependent Current Visit: Yes Status: Chronic (8) COPD (chronic obstructive pulmonary disease) Current Visit: Yes Status: Chronic Qualifiers: COPD type: unspecified COPD Qualified Code(s): J44.9 - Chronic obstructive pulmonary disease, unspecified (9) JOSE on CPAP Current Visit: Yes Status: Chronic (10) Insulin dependent diabetes mellitus Current Visit: Yes Status: Chronic (11) Gout Current Visit: Yes Status: Chronic Qualifiers: Gout site: unspecified site Gout etiology: unspecified cause Chronicity: unspecified Qualified Code(s): M10.9 - Gout, unspecified Subjective Interval history: Patient was seen this morning doing well without complaints. Afebrile vital signs stable. Operative extremity: Neurovascularly intact Dressing bloody drainage will change today. Calves nontender Assessment and plan: Continue with postoperative care hematocrit 36 Objective Vital signs: Vital Signs Temp Pulse Resp BP Pulse Ox 10/20/16 07:46 97 93 10/20/16 07:17 98.2 F 111 17 147/83 97 10/20/16 04:22 18 98 10/20/16 00:04 98.1 F 95 18 104/75 94 10/19/16 21:18 18 111/75 94 10/19/16 20:19 98.3 F 99 18 111/75 94 10/19/16 15:47 98.1 F 100 16 107/74 91 10/19/16 15:27 16 95 10/19/16 11:30 97.8 F 93 15 106/60 98 10/19/16 10:25 18 97 Intake and Output 10/19/16 10/20/16 10/20/16 23:59 07:59 15:59 Intake Total 400 / 400 Output Total 325 / 325 1025 / 1025 Balance 75 / 75 -1025 / -1025 Intake: Oral 400 / 400 Output: Urine 325 / 325 1025 / 1025 Other: Weight 122.3 kg Blood Glucose* 78 100 Patient Weight 10/20/16 23:59 Weight 122.3 kg - Labs CBC & BMP: 10/19/16 07:05 10/20/16 06:06 Labs: Abnormal lab results Hgb 11.5 g/dL (12.9-16.9) L 10/19/16 07:05 Hct 36.1 % (37.5-50.1) L 10/19/16 07:05 Potassium 4.6 mEq/L (3.5-4.5) H D 10/20/16 06:06 Carbon Dioxide 30 mEq/L (19-29) H 10/20/16 06:06 BUN 35 mg/dL (8-26) H 10/20/16 06:06 BUN/Creatinine Ratio 34 (6-26) H 10/20/16 06:06 POC Glucose 122 (58-89) H 10/19/16 15:50 - VTE Reasons for not Prescribing Prophylaxis: Not indicated-Anticoagulated or INR therapeutic Documentation of Mechanical Device: Venous foot pump, device Contraindication No Overlap Therapy: Admin of oral Factor Xa Inhibitor Consult Discharge Plan - Plan Referrals: Jack Ordaz TOOLING INSPECTOR [Primary Care Provider] -
[2016-10-20 08:09] LABS: Hematocrit 35.2 % (37.5-50.1); Hemoglobin 11.6 g/dL (12.9-16.9)
[2016-10-20] MEDS: Budesonide/Formoterol 160/4.5 MDI IH SCH ×2 (11:10→22:43)
[2016-10-20] MEDS: traZODone 50 MG TABLET PO SCH (21:14)
[2016-10-20] MEDS: Insulin DETEMIR 100 UNIT/ML X5UNITS SQ SCH (21:14)
[2016-10-20] MEDS: *HR* LORazepam 1 MG TABLET PO SCH (21:15)
[2016-10-21] MEDS: *HR* OxyCODONE Immed Rel 5 MG TABLET PO PRN ×3 (01:10→10:17)
[2016-10-21] MEDS: Ipratropium/Albuterol Neb 3 ML IH SCH ×2 (04:25→10:32)
[2016-10-21] MEDS: hydrALAZINE 10 MG TABLET PO SCH ×2 (05:59→11:27)
--- NOTE | 2016-10-21 07:50 | Orthopedics Progress Note ---
Date of Encounter: 10/21/16 Time of Encounter: 07:50 - Assessment and Plan (1) Status post total left knee replacement Current Visit: Yes Status: Acute (2) Morbid obesity with BMI of 40.0-44.9, adult Current Visit: Yes Status: Chronic (3) Arthritis of left knee Current Visit: Yes Status: Chronic (4) Atrial fibrillation Current Visit: Yes Status: Chronic Qualifiers: Atrial fibrillation type: unspecified Qualified Code(s): I48.91 - Unspecified atrial fibrillation (5) Cardiac defibrillator in place Current Visit: Yes Status: Chronic (6) Anticoagulant long-term use Current Visit: Yes Status: Chronic (7) Oxygen dependent Current Visit: Yes Status: Chronic (8) COPD (chronic obstructive pulmonary disease) Current Visit: Yes Status: Chronic Qualifiers: COPD type: unspecified COPD Qualified Code(s): J44.9 - Chronic obstructive pulmonary disease, unspecified (9) JOSE on CPAP Current Visit: Yes Status: Chronic (10) Insulin dependent diabetes mellitus Current Visit: Yes Status: Chronic (11) Gout Current Visit: Yes Status: Chronic Qualifiers: Gout site: unspecified site Gout etiology: unspecified cause Chronicity: unspecified Qualified Code(s): M10.9 - Gout, unspecified Subjective Interval history: Patient was seen this morning doing well without complaints. Afebrile vital signs stable. Operative extremity: Neurovascularly intact Dressing bloody drainage will change today. Calves nontender Assessment and plan: Continue with postoperative care stable for discharge today Objective Vital signs: Vital Signs Temp Pulse Resp BP Pulse Ox 10/21/16 07:17 98.5 F 72 18 122/84 93 10/21/16 04:25 20 90 10/21/16 00:35 98.8 F 118 20 133/68 90 10/20/16 22:43 18 94 10/20/16 21:25 99.2 F 103 18 131/75 95 10/20/16 16:07 20 92 10/20/16 15:52 98.8 F 100 18 167/79 98 10/20/16 11:23 98.2 F 105 17 133/76 99 10/20/16 11:10 18 93 Intake and Output 10/20/16 10/20/16 10/21/16 15:59 23:59 07:59 Intake Total 360 / 360 490 / 490 240 / 240 Output Total 1650 / 1650 850 / 850 800 / 800 Balance -1290 / -1290 -360 / -360 -560 / -560 Intake: Oral 360 / 360 490 / 490 240 / 240 Output: Urine 1350 / 1350 850 / 850 800 / 800 Catheter 300 / 300 Other: Meal Lunch Dinner Percent of Meal Consumed 100% 100% Blood Glucose* 83 102 94 - Labs CBC & BMP: 10/20/16 06:06 10/20/16 06:06 Labs: Abnormal lab results Hgb 11.6 g/dL (12.9-16.9) L 10/20/16 06:06 Hct 35.2 % (37.5-50.1) L 10/20/16 06:06 Potassium 4.6 mEq/L (3.5-4.5) H D 10/20/16 06:06 Carbon Dioxide 30 mEq/L (19-29) H 10/20/16 06:06 BUN 35 mg/dL (8-26) H 10/20/16 06:06 BUN/Creatinine Ratio 34 (6-26) H 10/20/16 06:06 POC Glucose 102 (58-89) H 10/20/16 20:57 - VTE Reasons for not Prescribing Prophylaxis: Not indicated-Anticoagulated or INR therapeutic Documentation of Mechanical Device: Venous foot pump, device Contraindication No Overlap Therapy: Admin of oral Factor Xa Inhibitor Consult Discharge Plan - Plan Referrals: Jack Ordaz, RADIATOR MECHANIC [Primary Care Provider] -
[2016-10-21] MEDS: Insulin LISPRO 300 UNITS/3 ML VIAL SQ SCH ×4 (08:14→11:29)
[2016-10-21] MEDS: Multivit/Ca/Min/Fe/FA 1 TAB TABLET PO SCH (08:18)
[2016-10-21] MEDS: APIXABAN 2.5 MG TABLET PO SCH (08:19)
[2016-10-21] MEDS: Furosemide 40 MG TABLET PO SCH (08:19)
[2016-10-21] MEDS: Budesonide/Formoterol 160/4.5 MDI IH SCH (10:31)
[2016-10-21 11:11] VITALS: BP 101/72
== END 2016-10-21 12:20 | disposition other institution (70) | DRG 470 ==
LOC: SAMDAY 07:02 → 3NENU 11:43
PROVIDERS: ADMIT Orthopaedic Surgery; ATTEND Orthopaedic Surgery